=== PATIENT | male | born 1955 | race African-American/Black ===

== ENCOUNTER 2022-05-05 06:15 | Observation (INO) ==
[2022-04-28 13:45] LABS: Basophils # 0.1 10*3/uL (0.0-0.2); Basophils % 0.7 % (0.0-0.8); Eosinophils # 0.1 10*3/uL (0.0-0.87); Eosinophils % 1.7 % (0.00-10.9); Hematocrit 49.5 VOL% (42.0-52.0); Hemoglobin 16.1 GM/DL (14.0-18.0); Immature Granulocytes % 0.3 %; Immature Granulocytes Absolute 0.02 #; Lymphocytes # 2.3 10*3/uL (1.4-4.0); Lymphocytes % 32.8 % (21.2-54.2); Mean Corpuscular HGB Conc 32.5 GM/DL (32-36); Mean Corpuscular Volume 94.6 FL (87-102); Monocytes # 0.5 10*3/uL (0.11-0.8); Monocytes % 6.6 % (1.7-12.7); Neutrophils % 57.9 % (38.7-73.9); Platelet Count 236 T/CUMM (130-400); Red Blood Count 5.23 MC/CUMM (3.8-5.5); Red Cell Distribution Width 15.7 % (9.3-17.3); White Blood Count 6.9 T/CUMM (4-12)
[2022-04-28 14:18] LABS: Alanine Aminotransferase 19 U/L (16-61); Albumin 3.3 G/DL (3.4-5.0); Alkaline Phosphatase 88 U/L (45-117); Aspartate Amino Transferase 17 U/L (0-37); Bilirubin,Total < 0.39 MG/DL (0.20-1.00); Blood Urea Nitrogen 5 MG/DL (7-18); Calcium 8.7 MG/DL (8.5-10.1); Carbon Dioxide 27 MMOL/L (21-32); Chloride 110 MMOL/L (98-107); Glucose 69 MG/DL (74-106); Potassium 4.6 MMOL/L (3.5-5.1); Sodium 143 MMOL/L (136-145); Total Protein 6.4 G/DL (6.4-8.2)
[~2022-05-05 06:15] MED LIST: DEXAMETHASONE 4 MG/1 ML VIAL ONE; LACTATED RINGERS 1,000 ML IV SCH; LEVOFLOXACIN INJ 500 MG/100 ML PREMIX IV ONE; ROPIVACAINE 0.5% 30 ML VIAL ONE
[2022-05-05] MEDS ORDERED: DIAZEPAM 5 MG TABLET PO ONE (06:48)
[2022-05-05] MEDS ORDERED: GABAPENTIN 400 MG CAPSULE PO ONE (06:48)
[2022-05-05] MEDS ORDERED: FAMOTIDINE 20 MG TABLET PO ONE (06:48)
[2022-05-05] MEDS ORDERED: BUPIVACAINE MPF 0.25% 10 ML VIAL ONE (06:49)
[2022-05-05] MEDS ORDERED: ROPIVACAINE 0.5% 30 ML VIAL ONE (06:55)
[2022-05-05] MEDS ORDERED: DEXAMETHASONE 4 MG/1 ML VIAL ONE (07:25)
[2022-05-05] MEDS ORDERED: SIMETHICONE CHEW 125 MG TABLET PO PRN (12:05)
[2022-05-05] MEDS ORDERED: ONDANSETRON 4 MG/2 ML VIAL IV PRN ×2 (12:05→13:05)
[2022-05-05] MEDS ORDERED: PROMETHAZINE 25 MG/1 ML VIAL IM PRN (12:05)
[2022-05-05] MEDS ORDERED: diphenhydrAMINE 50 MG/1 ML VIAL IV PRN (12:05)
[2022-05-05 12:07] LABS: Bacteria,Urine Moderate /HPF (Few); Bilirubin,Urine Small mg/dL (Negative); Blood, Urine Trace mg/dL (Negative); Glucose,Urine (UA) Negative (Negative); Ketones,Urine Negative (Negative); Mucus,Urine Occasional /LPF (Occasional); Nitrite,Urine Negative (Negative); Protein,Urine 30 mg/dL (Negative); RBC,Urine 11 /HPF (0-4); Squamous Epithelial Cell,Urine Occasional /HPF (0-10); Urine Appearance Slightly Cloudy (Clear); Urine Color Dark yellow (Yellow)
[2022-05-05] MEDS: HYDROmorphone 1 MG/1 ML SYRINGE IV PRN (13:05)
[2022-05-05] MEDS ORDERED: HYDROmorphone 1 MG/1 ML SYRINGE IV PRN (13:05)
[2022-05-05 13:06] LABS: Basophils % 0.2 % (0.0-0.8); Hematocrit 51.9 VOL% (42.0-52.0); Hemoglobin 17.4 GM/DL (14.0-18.0); Immature Granulocytes % 0.3 %; Immature Granulocytes Absolute 0.05 #; Lymphocytes # 0.8 10*3/uL (1.4-4.0); Lymphocytes % 5.3 % (21.2-54.2); Mean Corpuscular HGB Conc 33.5 GM/DL (32-36); Mean Corpuscular Volume 94.7 FL (87-102); Mean Platelet Volume 9.5 FL (9.6-12.0); Monocytes # 0.2 10*3/uL (0.11-0.8); Monocytes % 1.6 % (1.7-12.7); Neutrophils % 92.6 % (38.7-73.9); Platelet Count 190 T/CUMM (130-400); Red Blood Count 5.48 MC/CUMM (3.8-5.5); Red Cell Distribution Width 15.8 % (9.3-17.3); White Blood Count 14.5 T/CUMM (4-12)
[2022-05-05 13:25] LABS: Calcium 8.5 MG/DL (8.5-10.1)
[2022-05-05] MEDS: ACETAMINOPHEN 325 MG TABLET PO SCH ×2 (13:46→18:06)
[2022-05-05] MEDS: oxyCODONE/ACETAMINOPHEN 5-325 MG TABLET PO PRN ×2 (13:52→20:43)
[2022-05-05 14:12] LABS: Band Neutrophils 3 % (0-10); Lymphocytes 5 % (20-55); Total Cells Counted 100
[2022-05-05 14:13] LABS: Platelet Estimate Normal
[2022-05-05] MEDS ORDERED: hydrALAZINE 25 MG TABLET PO PRN (15:31)
[2022-05-05] MEDS: OXYBUTYNIN 5 MG TABLET PO SCH ×2 (15:42→20:39)
[2022-05-05] MEDS: SODIUM CHLORIDE 0.9% 1,000 ML IV SCH (17:46)
[2022-05-05] MEDS: ALVIMOPAN 12 MG CAPSULE PO SCH (20:39)
[2022-05-05] MEDS: DOCUSATE SODIUM 100 MG CAPSULE PO SCH (20:39)
[2022-05-06] MEDS: HYDROmorphone 1 MG/1 ML SYRINGE IV PRN (01:00)
[2022-05-06] MEDS: ACETAMINOPHEN 325 MG TABLET PO SCH ×3 (01:01→14:47)
[2022-05-06] MEDS: SODIUM CHLORIDE 0.9% 1,000 ML IV SCH ×2 (01:20→11:17)
[2022-05-06 05:03] LABS: Basophils % 0.2 % (0.0-0.8); Hemoglobin 14.9 GM/DL (14.0-18.0); Immature Granulocytes % 0.5 %; Immature Granulocytes Absolute 0.06 #; Lymphocytes # 1.8 10*3/uL (1.4-4.0); Lymphocytes % 13.1 % (21.2-54.2); Mean Corpuscular HGB Conc 33.1 GM/DL (32-36); Mean Corpuscular Volume 93.4 FL (87-102); Mean Platelet Volume 9.6 FL (9.6-12.0); Monocytes # 1.6 10*3/uL (0.11-0.8); Monocytes % 11.7 % (1.7-12.7); Neutrophils % 74.5 % (38.7-73.9); Platelet Count 181 T/CUMM (130-400); Red Blood Count 4.82 MC/CUMM (3.8-5.5); Red Cell Distribution Width 15.5 % (9.3-17.3); White Blood Count 13.3 T/CUMM (4-12)
[2022-05-06 05:27] LABS: Calcium 8.3 MG/DL (8.5-10.1); Osmolality,Calculated 274.5 MOS/KG (273-304); Potassium 4.3 MMOL/L (3.5-5.1)
[2022-05-06] MEDS: ALVIMOPAN 12 MG CAPSULE PO SCH (08:49)
[2022-05-06] MEDS: OXYBUTYNIN 5 MG TABLET PO SCH ×2 (08:49→16:13)
[2022-05-06] MEDS: DOCUSATE SODIUM 100 MG CAPSULE PO SCH (08:49)
[2022-05-06] MEDS ORDERED: LEVOFLOXACIN 500 MG TABLET PO SCH (09:00)
[2022-05-06 11:50] VITALS: BP 130/79
[2022-05-06] MEDS: oxyCODONE/ACETAMINOPHEN 5-325 MG TABLET PO PRN (16:13)
== END 2022-05-06 16:14 | disposition home or self-care (01) ==
LOC: N.SDSINP 06:15 → INTOOBSV 06:15 → N.3E 13:33
PROVIDERS: ADMIT Surgery; ATTEND Surgery